=== PATIENT | female | born 1955 ===

== ENCOUNTER → 2018-05-07 21:08 | Outpatient (REF) | payer BC, SELFPAY ==
[2018-05-07 21:51] LABS: Add Manual Diff / Slide Review NO; Basophils Absolute Auto 100 /uL (0-100); Basophils Percent Auto 1.2 % (0-2); Eosinophils Absolute Auto 300 /uL (0-450); Eosinophils Percent Auto 4.2 % (2-4); Hematocrit 40.5 % (36-46); Hemoglobin 13.2 g/dL (12.0-16.0); Lymphocytes Absolute Auto 1400 /uL (1100-4500); Lymphocytes Percent Auto 22.8 % (25-40); Mean Corpuscular HGB Conc 32.5 % (30-36); Mean Corpuscular Hemoglobin 30.2 PG (26-34); Mean Corpuscular Volume 92.7 fL (80-100); Monocytes Absolute Auto 400 /uL (0-900); Monocytes Percent Auto 7.4 % (3-14); Neutrophils Absolute Auto 3800 /uL (1500-7000); Neutrophils Percent Auto 64.4 % (50-75); Platelet Count 243 X10^3/uL (150-400); Red Blood Cell Count 4.37 X10^6/uL (4.0-5.2); Red Cell Distribution Width 12.9 % (11.6-14.8)
== END ==
LOC: LAB 21:08
PROVIDERS: Visit Provider Acupuncturist
DX: L29.9 Pruritus, unspecified (principal)
CPT/HCPCS: 36415; 83088; 85025